=== PATIENT | female | born 1955 | race Caucasian/White ===

== ENCOUNTER → 2021-07-25 11:35 | Outpatient (CLI) | payer MEDICARE, OTHER, SELFPAY | PROVIDERS: Visit Provider Ophthalmology | DX: Z01.812 Encounter for preprocedural laboratory examination (principal); Z11.52 Encounter for screening for COVID-19 | CPT/HCPCS: C9803; U0003; U0005 ==

== ENCOUNTER 2021-07-28 09:13 | Day surgery (SDC) | payer MEDICARE, OTHER, SELFPAY ==
[2021-07-22 12:59] VITALS: BMI 25.3
[2021-07-28] VITALS (7 sets, daily range): BP systolic 147–177; BP diastolic 65–97; PULSE 69–87; RESP 16–18; TEMP 36.3–36.6; O2SAT 96–100
== END 2021-07-28 11:45 | disposition home or self-care (01) ==
LOC: OR 09:16
PROVIDERS: Visit Provider Ophthalmology
DX: H25.813 Combined forms of age-related cataract, bilateral (principal); H53.149 Visual discomfort, unspecified; H02.831 Dermatochalasis of right upper eyelid; H02.834 Dermatochalasis of left upper eyelid; R56.9 Unspecified convulsions; E07.9 Disorder of thyroid, unspecified; Z85.89 Personal history of malignant neoplasm of other organs and systems; Z79.899 Other long term (current) drug therapy
CPT/HCPCS: 66984; V2632

== ENCOUNTER → 2021-08-08 11:33 | Outpatient (CLI) | payer MEDICARE, OTHER, SELFPAY | PROVIDERS: Visit Provider Ophthalmology | DX: Z01.812 Encounter for preprocedural laboratory examination (principal); Z11.52 Encounter for screening for COVID-19 | CPT/HCPCS: C9803; U0003; U0005 ==

== ENCOUNTER 2021-08-11 10:08 | Day surgery (SDC) | payer MEDICARE, OTHER, SELFPAY ==
[2021-08-05 11:02] VITALS: BMI 25.1
[2021-08-11] VITALS (7 sets, daily range): BP systolic 132–151; BP diastolic 63–93; PULSE 68–81; RESP 18; TEMP 36.1–36.8; O2SAT 97–100
== END 2021-08-11 14:05 | disposition home or self-care (01) ==
PROVIDERS: Visit Provider Ophthalmology
DX: H25.813 Combined forms of age-related cataract, bilateral (principal); H02.831 Dermatochalasis of right upper eyelid; H02.834 Dermatochalasis of left upper eyelid; R56.9 Unspecified convulsions; Z90.49 Acquired absence of other specified parts of digestive tract; C76.0 Malignant neoplasm of head, face and neck; C79.89 Secondary malignant neoplasm of other specified sites; Z79.899 Other long term (current) drug therapy
CPT/HCPCS: 66984; V2632